=== PATIENT | male | born 1955 | race Caucasian/White ===

== ENCOUNTER → 2016-08-22 | Outpatient (CLI) | payer OTHER ==
[~2016-08-22] MED LIST: ASPIR 8181 M1 PO; HYDROCHLOROTHIA25 MG PO; NEXIUM40 MG PO; SIMVASTATIN40 MG PO
== END | disposition home or self-care (01) ==
LOC: CDC 09:51
DX: Z01.810 Encounter for preprocedural cardiovascular examination (principal); G56.02 Carpal tunnel syndrome, left upper limb; Z88.0 Allergy status to penicillin; Z88.6 Allergy status to analgesic agent
CPT/HCPCS: 93000